=== PATIENT | female | born 1970 | race Caucasian/White ===

== ENCOUNTER → 2024-09-17 10:21 | Outpatient (REF) | payer BC, SELFPAY | LOC: HWRAD 10:21 | PROVIDERS: ATTENDING PHYSICIAN Obstetrics & Gynecology; FAMILY PHYSICIAN Internal Medicine; REFERRING PHYSICIAN Internal Medicine Hematology & Oncology | DX: N93.9 Abnormal uterine and vaginal bleeding, unspecified (principal) | CPT/HCPCS: 76830; 76856 ==

== ENCOUNTER → 2024-10-10 11:43 | Outpatient (REF) | payer BC, SELFPAY ==
[2024-10-10 11:57] LABS: ALT (SGPT) 24 U/L (0-35); AST (SGOT) 27 U/L (14-36); Albumin 4.3 g/dl (3.5-5.0); Alkaline Phosphatase 83 U/L (38-126); Blood Urea Nitrogen 17 mg/dl (7-17); Carbon Dioxide 29 mmol/L (22-30); Chloride 105 mmol/L (98-107); Glucose 85 mg/dl (70-99); Sodium 142 mmol/L (135-145); Total Cholesterol 243 mg/dl (50-199); Total Protein 6.8 g/dl (6.3-8.2); Triglyceride 40 mg/dl (10-149); Very Low Density Lipoprotein 8 mg/dl (0-30); eGFR > 60.00
[2024-10-10 12:10] LABS: HDL Cholesterol 117 mg/dl; LDL Cholesterol, Calculated 118 mg/dl; Vitamin D, 25-OH*** 38.6 ng/mL (30-80)
[2024-10-10 12:24] LABS: TSH Reflex To Free T4 0.61 uIU/ml (0.47-4.68)
== END ==
LOC: OLAB 11:43
PROVIDERS: ATTENDING PHYSICIAN Internal Medicine
DX: Z00.00 Encounter for general adult medical examination without abnormal findings (principal)
CPT/HCPCS: 36415; 80053; 80061; 82306; 84443

== ENCOUNTER 2024-10-23 06:15 | Day surgery (SDC) | payer BC, SELFPAY ==
[2024-10-10 11:04] LABS: % Eosinophils 2.4 % (0-6); % Immature Granulocytes 0.2 % (0-0.5); % Lymphocytes 37.2 % (20.5-51.1); % Monocytes 6.8 % (1.7-9.3); % Neutrophils 52.4 % (42.2-75.2); Absolute Basophils 0.1 10^3/uL (0-0.2); Absolute Eosinophils 0.1 10^3/uL (0-0.7); Absolute Lymphocytes 1.9 10^3/uL (1.2-3.4); Absolute Monocytes 0.3 10^3/uL (0.1-0.6); Absolute Neutrophils 2.6 10^3/uL (1.4-6.5); Hematocrit 38.7 % (37.0-47.0); Hemoglobin 13.1 g/dL (12.0-16.0); Mean Corp Hgb Conc. 33.9 g/dL (33.0-37.0); Mean Corpuscular Hgb 30.2 pg (27.0-31.0); Mean Corpuscular Volume 89.2 fL (81.0-99.0); Mean Platelet Volume 10.2 fL (7.4-10.4); Nucleated Red Blood Cells % 0 %; Platelet Count 307 10^3/uL (130-400); Red Blood Cell Count 4.34 10^6/uL (4.20-5.40)
[2024-10-10 11:56] LABS: Blood Urea Nitrogen 17 mg/dl (7-17); Calcium 9.9 mg/dl (8.4-10.2); Carbon Dioxide 28 mmol/L (22-30); Chloride 105 mmol/L (98-107); Glucose 85 mg/dl (70-99); Sodium 142 mmol/L (135-145); eGFR > 60.00
[2024-10-10 12:09] LABS: Beta HCG Quantitative 7.51 mIU/ml
[2024-10-10 14:09] VITALS: BMI 20.9
[2024-10-23] VITALS (7 sets, daily range): BP systolic 114–168; BP diastolic 70–94; BMI 20.9
[2024-10-23] MEDS: TYLENOL 1000 MG PO (12:13)
[2024-10-23] MEDS: NORMOSOL-R/PLASMALYTE-A 1000 IV (12:14)
[2024-10-23] MEDS: NEURONTIN 300 MG PO (12:14)
== END 2024-10-23 15:29 | disposition home or self-care (01) ==
LOC: SDS 06:15
PROVIDERS: ATTENDING PHYSICIAN Obstetrics & Gynecology; FAMILY PHYSICIAN Internal Medicine
DX: N85.8 Other specified noninflammatory disorders of uterus (principal); N85.4 Malposition of uterus; N95.0 Postmenopausal bleeding; R93.89 Abnormal findings on diagnostic imaging of other specified body structures; Z85.3 Personal history of malignant neoplasm of breast
CPT/HCPCS: 58558; 88305; 36415; 76998; 80048; 84702; 85025; 86850; 86900; 86901

== ENCOUNTER → 2024-11-19 12:13 | Outpatient (REF) | payer BC, SELFPAY | LOC: MRI 12:13 | PROVIDERS: ATTENDING PHYSICIAN Obstetrics & Gynecology; FAMILY PHYSICIAN Internal Medicine | DX: N95.0 Postmenopausal bleeding (principal) | CPT/HCPCS: 72197; A9575 ==

== ENCOUNTER 2024-12-19 06:19 | Day surgery (SDC) | payer BC, SELFPAY ==
[2024-12-16 09:47] LABS: % Eosinophils 3.1 % (0-6); % Immature Granulocytes 0.2 % (0-0.5); % Lymphocytes 37.9 % (20.5-51.1); % Monocytes 6.5 % (1.7-9.3); % Neutrophils 51.3 % (42.2-75.2); Absolute Basophils 0.1 10^3/uL (0-0.2); Absolute Eosinophils 0.2 10^3/uL (0-0.7); Absolute Lymphocytes 1.9 10^3/uL (1.2-3.4); Absolute Monocytes 0.3 10^3/uL (0.1-0.6); Absolute Neutrophils 2.5 10^3/uL (1.4-6.5); Hematocrit 39.9 % (37.0-47.0); Hemoglobin 13.5 g/dL (12.0-16.0); Mean Corp Hgb Conc. 33.8 g/dL (33.0-37.0); Mean Corpuscular Hgb 29.6 pg (27.0-31.0); Mean Corpuscular Volume 87.5 fL (81.0-99.0); Mean Platelet Volume 9.9 fL (7.4-10.4); Nucleated Red Blood Cells % 0 %; Platelet Count 293 10^3/uL (130-400); Red Blood Cell Count 4.56 10^6/uL (4.20-5.40); Red Cell Dist. Width 11.6 % (11.5-14.5); White Blood Cell Count 4.9 10^3/uL (4.8-10.8)
[2024-12-16 09:58] LABS: APTT 28.4 Sec (23.4-35.0); INR 0.91; PT 12.5 Sec (11.4-14.6)
[2024-12-16 10:21] LABS: Blood Urea Nitrogen 14 mg/dl (7-17); Calcium 9.8 mg/dl (8.4-10.2); Carbon Dioxide 29 mmol/L (22-30); Chloride 108 mmol/L (98-107); Glucose 95 mg/dl (70-99); Potassium 3.8 mmol/L (3.5-5.1); Sodium 143 mmol/L (135-145); eGFR > 60.00
--- NOTE | 2024-12-16 12:47 | PTCARENOTE ---
Patients 12/16 HCG- 7.50- Rand @ Dr. Natarajan office notified
--- NOTE | 2024-12-16 16:38 | PTCARENOTE ---
Abnormal ECG 12/16/[address] Smith, no further interventions requested.
[2024-12-19] VITALS (9 sets, daily range): BP systolic 107–176; BP diastolic 66–100; BMI 21.7
[2024-12-19] MEDS: TYLENOL 1000 MG PO (11:41)
[2024-12-19] MEDS: NEURONTIN 300 MG PO (11:41)
[2024-12-19] MEDS: NORMOSOL-R/PLASMALYTE-A 1000 IV (11:56)
[2024-12-19] MEDS: SUBLIMAZE 25 MCG IV (16:22)
[2024-12-19] MEDS: ZOFRAN 4 MG IV (16:22)
[2024-12-19] MEDS: DILAUDID 0.5 MG IV (16:32)
--- NOTE | 2024-12-19 16:34 | W.IMMPOSTOP ---
Surgical Immed Post Op Note
-
Primary Surgeon: Tiara Gant DO
Sewer Tapper: Chelsy Reddy PA-C
Pre-op Diagnosis: Recurrent postmenopausal bleeding, nondiagnostic hysteroscopy D&C biopsy
Post-op Diagnosis: same
Procedure Performed: Robotic total laparoscopic hysterectomy, bilateral salpingo-oopherectomy
Anesthesia Type: general ET Dr. Amaral
Specimen / Cultures: uterus, cervix, bilateral fallopian tubes and bialteral ovaries
Estimated Blood Loss: 10mL
Urine output: 300mL clear yellow urine
Complications: none
Operative Findings: Uterus sounded to 7 cm, retroverted. Normal appearing uterus, tubes and ovaries.
Counts correct times 2.
Stable to recovery .
== END 2024-12-19 18:41 | disposition home or self-care (01) ==
LOC: SDS 06:19
PROVIDERS: ATTENDING PHYSICIAN Obstetrics & Gynecology; FAMILY PHYSICIAN Internal Medicine
DX: N80.03 Adenomyosis of the uterus (principal); N95.0 Postmenopausal bleeding; R93.89 Abnormal findings on diagnostic imaging of other specified body structures; Z85.3 Personal history of malignant neoplasm of breast
CPT/HCPCS: 58571; 88307; 36415; 80048; 84702; 85025; 85610; 85730; 86850; 86900; 86901; 93005

== ENCOUNTER → 2025-03-05 09:17 | Outpatient (REF) | payer BC, SELFPAY | LOC: RAD 09:17 | PROVIDERS: ATTENDING PHYSICIAN Internal Medicine | DX: M85.80 Other specified disorders of bone density and structure, unspecified site (principal) | CPT/HCPCS: 77080 ==

== ENCOUNTER → 2025-04-06 14:55 | Outpatient (REF) | payer BC, SELFPAY | LOC: HWRCS 14:55 | PROVIDERS: ATTENDING PHYSICIAN Physician Assistant Medical; FAMILY PHYSICIAN Internal Medicine | DX: I49.8 Other specified cardiac arrhythmias (principal); Z85.3 Personal history of malignant neoplasm of breast | CPT/HCPCS: 93306 ==